=== PATIENT | male | born 1975 | race Caucasian/White ===

== ENCOUNTER 2022-10-07 23:29 | Emergency (ER) | payer BC, OTHER ==
[2022-10-07 23:56] VITALS: BP 126/84; PULSE 71; RESP 16; TEMP 97.6; BMI 18.3
[2022-10-08] MEDS ORDERED: IBUPROFEN 400 MG TABLET (FP) PO ONE ×2 (00:21→00:28)
[2022-10-08] MEDS ORDERED: CYCLOBENZAPRINE HCL 10 MG TABLET (FP) PO ONE (00:22)
[2022-10-08] MEDS ORDERED: CYCLOBENZAPRINE HCL 5 MG TABLET ONE (00:29)
== END 2022-10-08 00:43 | disposition home or self-care (01) ==
LOC: FER 23:29
DX: S13.4XXA Sprain of ligaments of cervical spine, initial encounter (principal); V49.40XA Driver injured in collision with unspecified motor vehicles in traffic accident, initial encounter
CPT/HCPCS: 99283-25